=== PATIENT | female | born 1965 | race Caucasian/White ===

== ENCOUNTER → 2016-07-25 14:37 | Outpatient (CLI) | payer MEDICARE, MEDICAID ==
[2015-12-22 12:57] VITALS: BMI 29.6
[~2016-07-25 14:37] MED LIST: CLARITIN 10 MG10 MG PO; EFFIENT10 MG PO; HYDROCODONE-APA1 TAB PO; LIPITOR10 MG PO; LYRICA75 MG PO; MAXZIDE 75/501 TAB PO; MOBIC7.5 MG PO; NITROSTAT0.4 MG SL; NORVASC5 MG PO; PREDNISONE20 MG PO; PROAIR HFA8.5 GM INH; SYNTHROID25 MCG PO; XANAX0.25 MG PO; ZANAFLEX4 MG PO
== END | disposition home or self-care (01) ==
LOC: D.MRI 14:37
DX: M25.512 Pain in left shoulder (principal)

== ENCOUNTER 2017-10-03 17:05 | Inpatient (IN) | payer MEDICARE ==
[~2017-10-03] VITALS: Ht 168.9 cm; Wt 94.6 kg
[2017-10-03] MEDS ORDERED: BENADRYL25 MG PO (17:45)
[2017-10-03] MEDS ORDERED: PRINIVIL20 MG PO (17:48)
[2017-10-03] MEDS ORDERED: HYDRALAZINE HCL50 MG PO (17:50)
[2017-10-03] MEDS ORDERED: PROTONIX40 MG PO (17:50)
[2017-10-03 17:51] VITALS: BP 128/85; BMI 32.3
[2017-10-03 18:34] LABS: BASOPHILS 0.5 % (0-2); EOSINOPHILS 2.1 % (0-7); HEMATOCRIT 46.6 % (36.0-48.0); HEMOGLOBIN 16.2 g/dL (12-16); IMMATURE GRANULOCYTES 0.2 % (0-5); LYMPHOCYTES 36.2 % (15-50); MCH 31.2 pg (26.0-34.0); MCHC 34.8 g/dL (31.0-37.0); MCV 89.6 fL (80.0-100.0); MEAN PLATELET VOLUME 12.9 fL (7.4-10.4); MONOCYTES 8.4 % (2-11); NEUTROPHILS 52.6 % (40-80); PLATELET COUNT 198 10x3/uL (130-400); RDW 14.4 % (11.5-14.5); WBC 10.3 10x3/uL (4.8-10.8)
[2017-10-03 19:00] VITALS: BP 106/74
[2017-10-03 19:22] VITALS: Ht 168.9 cm; Wt 94.6 kg
[2017-10-04] VITALS: BP 140/90
[2017-10-04 04:00] VITALS: BP 107/61
[2017-10-04 08:52] VITALS: BP 118/87
[2017-10-04 10:08] LABS: ANION GAP 14.6 mmol/L (8-16); CALCIUM 8.5 mg/dL (8.5-10.1); CARBON DIOXIDE 24.8 mmol/L (21.0-32.0); POTASSIUM - SERUM 3.4 mmol/L (3.5-5.1)
[2017-10-04 11:35] VITALS: BP 122/78
[2017-10-04 16:21] VITALS: BP 105/62
[2017-10-04 20:06] VITALS: BP 107/70
[2017-10-05] VITALS (7 sets, daily range): BP systolic 104–122; BP diastolic 65–82
[2017-10-06 04:00] VITALS: BP 116/74
[2017-10-06 09:42] VITALS: BP 121/77
[2017-10-06 16:41] VITALS: BP 138/63
[2017-10-06] MEDS ORDERED: CIPRO500 MG PO (19:15)
== END 2017-10-06 20:30 | disposition home or self-care (01) | DRG 690 ==
LOC: D.M2 17:05
PROVIDERS: Urology
DX: N10 Acute pyelonephritis (principal); B96.20 Unspecified Escherichia coli [E. coli] as the cause of diseases classified elsewhere; I10 Essential (primary) hypertension; I25.10 Atherosclerotic heart disease of native coronary artery without angina pectoris; Z95.5 Presence of coronary angioplasty implant and graft; J44.9 Chronic obstructive pulmonary disease, unspecified; Z72.0 Tobacco use

== ENCOUNTER → 2018-01-29 22:46 | Outpatient (CLI) | payer MEDICARE ==
[2017-10-03 19:22] VITALS: BMI 32.3
[~2018-01-29 22:46] MED LIST changes: +BENADRYL25 MG PO; +CIPRO500 MG PO; +HYDRALAZINE HCL50 MG PO; +PRINIVIL20 MG PO; +PROTONIX40 MG PO
== END | disposition home or self-care (01) ==
LOC: D.MAMMO 13:15
DX: Z12.31 Encounter for screening mammogram for malignant neoplasm of breast (principal)

== ENCOUNTER 2018-08-27 12:23 | Outpatient (CLI) | payer MEDICARE ==
[~2018-08-27] VITALS: Ht 168.9 cm; Wt 85.5 kg
--- NOTE | ~2018-08-27 | OP ---
PATIENT NAME: TURNER CARMONA MEDICAL RECORD: [id number] :69 LOCATION:D.CAT ADMISSION DATE: SURGEON: BEV HER MD DATE OF OPERATION: 08/28/2018 DATE OF SERVICE: 08/28/2018 PROCEDURES: 1. PTCA stent left main. 2. PTCA stent LAD. 3. PTCA stent left circumflex. 4. Intravascular ultrasound. 5. Left heart catheterization. 6. Selective coronary angiography. 7. Left ventriculogram. INDICATION: Angina and coronary artery disease. PROCEDURE IN DETAIL: After informed consent was obtained and after a detailed description of risks, benefits as well as alternative therapies, the patient elected to proceed with angiogram and angioplasty. The left femoral area was prepped and draped in normal sterile fashion. Left femoral artery was cannulated via modified Seldinger technique with placement of 6-Georgian sheath. All catheters exchanged through this sheath. FINDINGS: Left ventriculogram was performed in standard 30-degree STONE view, reveals good cardiac wall motion throughout all segments. Overall ejection fraction estimated at 60%. SELECTIVE CORONARY ANGIOGRAPHY: 1. Left main is with no significant angiographic disease. The left main has greater than 80% stenosis by intravascular ultrasound. 2. Left anterior descending has previously placed stents. Intravascular ultrasound reveals there is greater than 70% stenosis proximal to the previously placed stents confirmed by intravascular ultrasound. 3. The left circumflex has 90% stenosis of the first obtuse marginal. 4. Right coronary has moderate irregularities, but no flow-limiting stenosis. Previously placed stents are widely patent. PTCA STENT OF THE LEFT MAIN: The stent used was a 3.5 x 15 mm German. Result was 0% residual stenosis. PTCA STENT OF LEFT CIRCUMFLEX: The stent used was a 2.25 x 12 mm German. Result was 0% residual stenosis. PTCA STENT OF THE LEFT ANTERIOR DESCENDING: The stent used was a 3.5 x 12 mm [place]. Result was 0% residual stenosis. OVERALL IMPRESSION: Successful percutaneous transluminal coronary angioplasty stent of the left main, left anterior descending, left circumflex going from 70% to 90% initial stenosis to 0% residual. TRANSINT:[id number] Voice Confirmation ID: [id number] DOCUMENT ID: [id number] OPERATIVE REPORT [id number] KRISTINETURNER Madison BEV HER MD CC: [id number] DICTATION DATE: 08/28/18 6918 EMERGENCY DETAIL DRIVER: 08/28/18 2327 DEP CLI 08/28/18 [facility] [address] [facility] [place] [address]
--- NOTE | ~2018-08-27 | HEMODYNAMI ---
PATIENT:TURNER CARMONA MEDICAL RECORD: [id number] : 69 [facility] [id number] ADMISSION DATE: 08/27/18 Generatedon:08/28/201815:00 Patient name: TURNER CARMONA Patient #: [id number] SSN: DO B: 1965 Date of study: 08/28/2018 Page: Of Hemodynamic Procedure Report Patient Data Patient Demographics Procedure consent was obtained First Name: TURNER Gender: Female Last Name: KRISTINE : 1965 [facility] Initial: K Age: 53 year(s) Patient #: [id number] Race: Additional ID: [id number] Contact details [address]: [address] [place] [address] State: [place] City: [place] Zip code: [address] Past Medical History Allergies Allergen Reaction Date Comments Reported Iodine 03/03/2015 Other allergy 03/03/2015 PLAVIX Other allergy 08/28/2018 [facility] Admission Admission Data Admission Date: 08/27/2018 Admission Time: 12:23 Room #: D.2120 Height (in.): 66.14 BSA: 1.95 (m2) Height (cm.): 168 BMI: 30.12 (kg/m2) Weight (lbs.): 187.39 Weight (kg.): 85 Lab Results Lab Result Date: 08/28/2018 Lab Result Time: 0:00 Biochemistry Name Units Result Min Max BUN mg/dl 14 --(--*-)-- 7 18 Creatinine mg/dl 1 --(--*-)-- 0.6 1.3 CBC Name Units Result Min Max Hemoglobin g/dl 15.1 --(-*--)-- 13.5 17.5 Procedure Procedure Types Cath Procedure Diagnostic Procedure C [facility] w/Coronaries FFR/IVUS Intra-Coronary IVUS Initial Intra-Coronary IVUS Additional Sedation Charges Moderate Sedation up to 15 minutes PCI Procedure Coronary Stent Coronary Stent Initial Coronary Stent Initial x2 Peripheral Cath Diagnostic Procedure Intelligence Agent Peripheral Procedures Four Vessel Arteriogram Procedure Description Procedure Date Procedure Date: 08/28/2018 Procedure Start Time: 14:32 Procedure End Time: 14:57 Procedure Staff Name Function Jt Lockwood MD Performing Physician Korey Phipps RT Monitor Maria Fernanda Hahn RN Nurse Ana Luisa Beltran RT Scrub Procedure Data Cath Procedure Fluoroscopy Diagnostic fluoroscopy Total fluoroscopy Time: 8.1 time: 8.1 min min Diagnostic fluoroscopy Total fluoroscopy dose: dose: 1107 mGy 1107 mGy Contrast Material Contrast Material Type Amount (ml) Isovue 300 230 Entry Location Entry Primary Successful Side Size Upsize Upsize Entry Closure Succes sful Closure Location (Fr) 1 (Fr) 2 (Fr) Remarks Device Remarks Femoral Left 6 Fr 6 Fr Exoseal artery Short Short Estimated blood loss: 10 ml Diagnostic catheters Device Type Used For End Catheter Placement MULTIPACK Pigtail 5 Fr Procedure catheter MULTIPACK JL 4.0 5Fr Procedure catheter MULTIPACK 3DRC 5Fr Procedure catheter MULTIPACK 3DRC 5Fr Procedure catheter Procedure Complications No complications Procedure Medications Medication Administration Route Dosage Oxygen etCO2 Nasal cannula 2 l/min Lidocaine 2% added to field 20 Heparin Flush Bag added to field 2 bags (1000units/500ml NS) 0.9% NaCl I.V. 100 ml/hr Effient P.O. 10 mg Versed I.V. 2 mg Fentanyl I.V. 100 mcg Versed I.V. 2 mg Fentanyl I.V. 100 mcg Heparin Bolus I.V. 4000 units Versed I.V. 2 mg Versed I.V. 1 mg Hemodynamics Rest BSA: 1.95 (m2) HGB: 15.1 (g/dl) O2 Consumption: Estimated: 201.98 (ml/min) O2 Co nsumption indexed: Estimated:103.58 (ml/min/m) Heart Rate: 86 (bpm) Snapshots Pre Cath Intra NCS Post Cath Vital Signs Time Heart Resp SPO2 etCO2 NIBP (mmHg) Rhythm Pain Sedation Rate (ipm) (%) (mmHg) Status Level (bpm) 14:05:47 85 14 98 0 134/81(122) NSR 0 (11) 10(A) , No pain 14:09:59 89 19 96 29.5 123/77(94) NSR 0 (11) 10(A) , No pain 14:14:09 84 16 94 30.2 119/77(100) NSR 0 (11) 10(A) , No pain 14:18:19 82 20 97 34.7 128/76(100) NSR 0 (11) 10(A) , No pain 14:22:31 85 17 93 31.8 116/77(97) NSR 0 (11) 10(A) , No pain 14:26:38 84 14 92 27.9 112/76(92) NSR 0 (11) 10(A) , No pain 14:30:46 89 13 93 26.4 108/72(84) NSR 0 (11) 10(A) , No pain 14:34:56 86 15 92 32.5 108/62(84) NSR 0 (11) 9(A) , No pain 14:39:06 84 13 94 35.5 111/60(86) NSR 0 (11) 9(A) , No pain 14:43:18 98 11 94 28 95/57(82) NSR 0 (11) 9(A) , No pain 14:47:22 101 13 97 35.5 109/67(92) NSR 0 (11) 9(A) , No pain 14:51:27 96 16 97 37.8 120/73(92) NSR 0 (11) 9(A) , No pain 14:55:37 95 14 98 37.8 109/65(87) NSR 0 (11) 10(A) , No pain Medications Time Medication Route Dose Verified Delivered Reason Notes Effectiveness by by 14:12:56 Oxygen etCO2 2 Jt Irving used for Nasal l/min Mandie Hahn RN procedure cannula 14:13:04 Lidocaine 2% added 20ml Jt Waters for local to vial Mandie Lockwood MD anesthetic field 14:13:09 Heparin Flush added 2 Jt Waters used for Bag to bags Mandie Lockwood MD procedure (1000units/500ml field NS) 14:13:22 0.9% NaCl I.V. 100 Jt Irving Per physician ml/hr Mandie Hahn RN 14:13:41 Effient P.O. 10 mg Jt Bolañosie for Mandie Hahn RN antiplatelet therapy 14:28:15 Versed I.V. 2 mg Jt Irving for sedation Mandie Hahn RN 14:28:22 Fentanyl I.V. 100 Jt Buffie for sedation mcg Mandie Hahn RN 14:33:12 Versed I.V. 2 mg Jt Irving for sedation Mandie Hahn RN 14:33:17 Fentanyl I.V. 100 Jtyaneli Irving for sedation mcg Mandie Hahn RN 14:37:55 Versed I.V. 2 mg Jt Irving for sedation Mandie Hahn RN 14:40:49 Heparin Bolus I.V. 4000 Jt Irving for verif ied units Mandie Hahn RN anticoagulation with dr lockwood 14:46:54 Versed I.V. 1 mg Jt Irving for sedation Mandie Hahn RN Procedure Log Time Note 13:44:45 Patient Height : 66.14 inches 13:44:50 Patient Weight : 187.39 lbs 13:45:22 Lab Result : Hemoglobin 15.1 g/dl 13:45:22 Lab Result : Creatinine 1 mg/dl 13:45:22 Lab Result : BUN 14 mg/dl 13:46:23 Diagnostic Cath status Elective 13:46:25 Maria Fernanda Hahn RN sent for patient. Start room use. 13:46:27 Time tracking: Regular hours (M-F 7:00 - 5:00) 13:46:33 Plan of Care:Hemodynamics will remain stable., Cardiac rhythm will remain stable., Comfort level will be maintained., Respiratory function will remain adequate., Patient/ family verbilizes understanding of procedure., Procedure tolerated without complication., Recovers from procedure without complications.. 13:46:40 Patient received from Pre/Post Procedure Room to [facility] 1 Alert and oriented. Tansferred to table in Supine position. 14:04:45 Vital chart was started 14:12:26 Warm blankets applied, and odalys hugger turned on for patient comfort. 14:12:29 Correct patient and procedure confirmed by team. 14:12:35 Signed procedure consent form obtained from patient. 14:12:36 ECG and BP/O2 sat monitors applied to patient. 14:12:38 Baseline sample Acquired. 14:12:42 Rhythm: sinus rhythm 14:12:45 Full Disclosure recording started 14:12:56 Oxygen 2 l/min etCO2 Nasal cannula was administered by Maria Fernanda Hahn RN; used for procedure; 14:12:59 H&P Date Dictated: 08/28/2018 Within 30 days and on chart.. 14:13:00 Pre-procedure instructions explained to patient. 14:13:02 Family in waiting room. 14:13:04 Lidocaine 2% 20ml vial added to field was administered by Jt Lockwood MD; for local anesthetic; 14:13:09 Heparin Flush Bag (1000units/500ml NS) 2 bags added to field was administered by Jt Lockwood MD; used for procedure; 14:13:16 Patient allergic to Other allergysee chrt 14:13:19 Is the patient allergic to Iodine/contrast media? Yes. 14:13:20 Was the patient premedicated? Yes 14:13:22 0.9% NaCl 100 ml/hr I.V. was administered by Maria Fernanda Hahn RN; Per physician; 14:13:22 Is patient on blood thinner?Yes 14:13:25 ACC The patient was administered the following blood thiners within the last 24 hours: ACCEffient 14:13:27 Patient diabetic? No. 14:13:34 Snore? Yes 14:13:36 Sleep apnea? Yes 14:13:39 Deviated septum? No 14:13:41 Effient 10 mg P.O. was administered by Maria Fernanda Hahn RN; for antiplatelet therapy; 14:13:47 Patient pain scale 0/10 ?. 14:13:58 IV patent on arrival in left forearm with 0.9% NaCl at [facility]. 14:14:03 Lab results completed and on chart. 14:14:09 Left groin area was prepped with chlora-prep and draped in sterile fashion 14:14:12 Alarms reviewed by R. N. 14:14:12 Sharps counted by scrub and verified by R.N. 14:14:13 Physician paged 14:14:14 Physician arrived 14:19:38 Pre procedure: right dorsailis pedis pulse 1+ Palpable, but thready & weak; easily obliterated 14:19:40 Pre procedure: left dorsailis pedis pulse 1+ Palpable, but thready & weak; easily obliterated 14:27:29 Zero performed for pressure channel P1 14::39 --------ALL STOP TIME OUT------ 14::39 Final Timeout: patient, procedure, and site verified with staff and physician. All members of the team are in agreement. 14:27:42 Left groin site verified by team. 14:27:46 Maximum allowable Isovue 300 dose 300ml. Physician notified. (300ml for normal creatinines. For patients with creatinine of 1.7 or higher multiply weight(kg) x 5 divided by creatinine.) 14:27:50 Fire Safety Assessment: A--An alcohol-based skin anteseptic being used preoperatively., C--Open oxygen or nitrous oxide is being used., D--An ESU, laser, or fiber-optic light is being used. 14:27:54 Physical assessment completed. ASA score P 2 - A patient with mild systemic disease as per Jt Lockwood MD. 14:28:02 Sedation plan: IV Moderate Sedation Medication:Versed, Fentanyl 14:28:06 Use device set Femoral Dx 14:28:07 ACIST Syringe (04450) opened to sterile field. 14:28:08 Bag Decanter (2002S) opened to sterile field. 14:28:08 Medline Cath Pack ([id number]) opened to sterile field. 14:28:09 ACIST Hand Control (20799) opened to sterile field. 14:28:10 ACIST Manifold (75924) opened to sterile field. 14:28:13 Tegaderm 4 x 4 (1626W) opened to sterile field. 14:28:14 DIAGNOSTIC WIRE .035 260cm J wire (431683) opened to sterile field. 14:28:15 Versed 2 mg I.V. was administered by Maria Fernanda Hahn RN; for sedation; 14:28:15 DIAGNOSTIC Multipack 5Fr catheter set (LH3544) opened to sterile field. 14:28:16 SHEATH 5FR Luxor (OPG433) opened to sterile field. 14:28:22 Fentanyl 100 mcg I.V. was administered by Maria Fernanda Hahn RN; for sedation; 14:28:25 Zero performed for pressure channel P1 14:32:26 Procedure started. 14:32:30 Local anesthetic to left femerol artery with Lidocaine 2% by Jt Lockwood MD.INITIAL ACCESS ONLY 14:32:38 A 6 Fr Short sheath was inserted into the Left Femoral artery 14:32:55 A MULTIPACK Pigtail 5 Fr catheter was advanced over the wire and used for Procedure. 14:33:08 LV gram done using STONE 14:33:10 Injector settings: Ml/sec: 10, Volume: 20, 14:33:12 Versed 2 mg I.V. was administered by Maria Fernanda Hahn RN; for sedation; 14:33:12 LV hemodynamics recorded. 14:33:17 Fentanyl 100 mcg I.V. was administered by Maria Fernanda Hahn RN; for sedation; 14:33:39 EF : 60 % 14:33:57 Catheter exchanged over wire. 14:34:02 A MULTIPACK JL 4.0 5Fr catheter was advanced over the wire and used for Procedure. 14:34:47 CHOICE PT Extra Support 182cm wire ([id number]) opened to sterile field. 14:34:48 INFLATOR Merit BasixCompak (AT1164) opened to sterile field. 14:34:55 SHEATH 6FR [place] (QFK182) opened to sterile field. 14:34:59 LCA angiography performed. 14:35:00 Catheter exchanged over wire. 14:35:18 A MULTIPACK 3DRC 5Fr catheter was advanced over the wire and used for Procedure. 14:35:40 RCA angiography performed. 14:36:44 GUIDE 6FR XBLAD 3.5 catheter ([id number]) opened to sterile field. 14:36:45 [place] IVUS Catheter (85607R) opened to sterile field. 14:36:50 Catheter removed. 14:36:56 Sheath upsized to a 6 Fr Short. 14:37:25 A MULTIPACK 3DRC 5Fr catheter was advanced over the wire and used for Procedure. 14:37:55 Versed 2 mg I.V. was administered by Maria Fernanda Hahn RN; for sedation; 14:38:07 Left carotid angiography performed. 14:39:06 Right subclavian angiography performed 14:39:09 Right carotid angiography performed. 14:40:19 Catheter removed. 14:40:29 6 Fr xblad 3.5 guide catheter was inserted over the wire 14:40:36 choice pt es wire advanced. 14:40:49 Heparin Bolus 4000 units I.V. was administered by Maria Fernanda Hahn RN; for anticoagulation; verified with dr lockwood 14:41:27 [place] IVUS Catheter ([id number]) opened to sterile field. 14:41:33 Wire advanced across lesion. 14:42:13 IVUS catheter advanced over wire. 14:44:09 IVUS pass to LAD lesion performed. 14:44:11 IVUS pass to LMCA lesion performed. 14:44:54 IVUS catheter removed over wire. 14:45:06 Wire redirected to citc. 14:45:16 Wire advanced across lesion. 14:46:54 Versed 1 mg I.V. was administered by Maria Fernanda Hahn RN; for sedation; 14:47:00 Place stent Inflation Number: 1 A JARRETT RX 2.25 x 12 stent ([id number]) was prepped and advanced across the Mid CX. The stent was deployed at 15 YOLY for 0:10 (min:sec). 14:47:22 Stent catheter was removed intact over wire. 14:47:26 Wire redirected to lad. 14:50:36 Place stent Inflation Number: 1 A JARRETT RX 3.5 x 15 stent ([id number]) was prepped and advanced across the LMCA. The stent was deployed at 13 YOLY for 0:10 (min:sec). 14:51:14 Stent catheter was removed intact over wire. 14:52:48 Place stent Inflation Number: 1 A JARRETT RX 3.5 x 12 stent ([id number]) was prepped and advanced across the Prox LAD. The stent was deployed at 13 YOLY for 0:10 (min:sec). 14:53:42 Stent catheter was removed intact over wire. 14:53:43 Wire removed. 14:53:43 Guide catheter removed. 14:53:49 EXOSEAL 6Fr (EX600) opened to sterile field. 14:53:55 Sheath removed intact; hemostasis achieved with Exoseal to the Left Femoral artery. 14:54:05 Procedure ended.(Physican Out) 14:54:49 Fluoroscopy time 08.10 minutes. 14:54:53 Fluoroscopy dose: 1107 mGy 14:54:53 Flurop Dose total: 1107 14:54:57 Contrast amount:Isovue 300 230ml. 14:54:58 Sharps counted by scrub and verified by R.N. 14:54:59 Insertion/operative site no bleeding no hematoma. 14:55:02 Post-op/insertion site Left Femoral artery dressed using a 4 x 4 and Tegaderm. 14:55:07 Post left femerol artery:stable, soft, clean and dry 14:55:09 Post Procedure Pulses reassessed and unchanged 14:55:12 Post-procedure physical assessment completed. ASA score P 2 - A patient with mild systemic disease as per Jt Lockwood MD. 14:55:14 Post procedure rhythm: unchanged. 14:55:19 Estimated blood loss: 10 ml 14:55:20 Post procedure instruction explained to patient.Patient verbalizes understanding. 14:55:21 Patient needs reinforcement of post procedure teaching. 14:56:42 Procedure type changed to Cath procedure, Diagnostic procedure, LHC, LHC w/Coronaries, FFR/IVUS, Intra-Coronary IVUS Initial, Intra-Coronary IVUS Additional, Sedation Charges, Moderate Sedation up to 15 minutes, PCI procedure, Coronary Stent, Coronary Stent Initial, Coronary Stent Initial x2, Peripheral Cath Diagnostic Procedure, Intelligence Agent Peripheral Procedures, Four Vessel Arteriogram 14:57:20 Procedure and supply charges have been captured, reviewed, submitted and are correct. 14:57:22 Procedure Complication : No complications 14:57:24 Vital chart was stopped 14:57:24 See physician's report for complete and final results. 14:57:41 Report given to PCU. 14:57:43 Patient transfered to PCU with Stretcher. 14:57:45 Procedure ended. 14:57:45 Full Disclosure recording stopped 14:57:48 End room use (Document Last) Intervention Summary Intervention Notes Time ActionType Lesion and Equipment Used Action# Pressure Duration Attributes 14:47:00 Place stent Mid CX JARRETT RX 2.25 x 1 15 00:10 12 stent ([id number]) 14:50:36 Place stent LMCA JARRETT RX 3.5 x 1 13 00:10 15 stent ([id number]) 14:52:48 Place stent Prox LAD JARRETT RX 3.5 x 1 13 00:10 12 stent ([id number]) Device Usage Item Name Manufacture Quantity Catalog Number Hospital Part Current M inimal Lot# / Charge Number Stock Stock Serial# Code ACIST Syringe Acist 1 73613 397627 556531 556242 2 0 (72633) Medical Row Sham Bow Inc Bag Decanter Microtek 1 411169 34342 991432 5 () Medical Inc. Medline Cath Medline 1 [id number] 400253 14816 087849 5 Pack ([id number]) ACIST Hand Acist 1 21450 862875 993123 226830 5 Control Medical (50178) Systems Inc ACIST Manifold Acist 1 66043 070537 970733 897092 5 (87716) Medical Systems Inc Tegaderm 4 x 4 3M 1 1626W 777020 118758 480960 5 (1626W) DIAGNOSTIC [place] 1 915542 563410 495070 407416 3 0 WIRE .035 260cm J wire (228982) DIAGNOSTIC Cardinal 1 QS1164 223424 76671 030972 3 0 Multipack 5Fr Health catheter set (TJ0687) SHEATH 5FR Terumo 1 KRM356 875980 946968 891958 5 Luxor (ZUL645) MULTIPACK Cardinal 1 042619 5 Pigtail 5 Fr Health catheter MULTIPACK JL Cardinal 1 542335 5 4.0 5Fr Health catheter CHOICE PT [place] 1 [id number] 008488 020726 541464 5 Extra Support Scientific 182cm wire ([id number]) INFLATOR Merit Merit 1 RZ1094 659477 911218 457847 1 5 RaNA [employer]rapeutics (ER4887) SHEATH 6FR Terumo 1 ILF791 586064 062859 571231 4 0 [place] (MDT702) MULTIPACK 3DRC Cardinal 1 320612 5 5Fr catheter Health GUIDE 6FR Cardinal 1 [id number] 853018 142351 367432 1 0 XBLAD 3.5 Health catheter ([id number]) [place] 2 23346K 026740 952015 352650 8 [place] IVUS Catheter (62983E) JARRETT RX 2.25 x Medtronic 1 [id number] 500852 8314165 062154 5 [id number] 12 stent ([id number]) JARRETT RX 3.5 x Medtronic 1 [id number] 636861 0589457 852763 5 [id number] 15 stent ([id number]) JARRETT RX 3.5 x Medtronic 1 [id number] 965601 0944051 477970 5 [id number] 12 stent ([id number]) EXOSEAL 6Fr Cardinal 1 EX600 690326 864432 873213 1 0 (EX600) Health Signature Audit [place] Stage Time Signature Unsigned Intra-Procedure 08/28/2018 Korey Phipps 3:00:55 PM RT(R) Signatures Monitor : Korey Phipps RT Signature : Date : Time : [address] [place] [address]
[2018-08-27 13:55] LABS: BASOPHILS 0.8 % (0-2); EOSINOPHILS 4.1 % (0-7); HEMATOCRIT 43.1 % (36.0-48.0); HEMOGLOBIN 15.1 g/dL (12-16); IMMATURE GRANULOCYTES 0.1 % (0-5); LYMPHOCYTES 44.7 % (15-50); MCH 31.8 pg (26.0-34.0); MCV 90.7 fL (80.0-100.0); MEAN PLATELET VOLUME 11.9 fL (7.4-10.4); MONOCYTES 4.6 % (2-11); NEUTROPHILS 45.7 % (40-80); PLATELET COUNT 236 10x3/uL (130-400); RBC 4.75 10x6/uL (4.00-5.40); WBC 8.5 10x3/uL (4.8-10.8)
[2018-08-27 14:10] LABS: APTT 35.2 SECONDS (22.8-39.4); INR 0.97 (0.85-1.17); PROTIME 12.4 SECONDS (11.6-15.0)
[2018-08-27 14:13] LABS: ALBUMIN 3.7 g/dL (3.4-5.0); ALKALINE PHOSPHATASE 101 U/L (46-116); ALT (SGPT) 29 U/L (10-68); BILIRUBIN - TOTAL 0.57 mg/dL (0.2-1.3); CALC OSMOLALITY 285 mosm/kg (275-300); CALCIUM 8.6 mg/dL (8.5-10.1); CARBON DIOXIDE 29.1 mmol/L (21.0-32.0); CHLORIDE - SERUM 106 mmol/L (98-107); GLUCOSE 99 mg/dL (74-106); PROTEIN - SERUM 7.1 g/dL (6.4-8.2); SODIUM 143 mmol/L (136-145); UREA NITROGEN 14 mg/dL (7-18); eGFR NON AFRICAN AMERICAN 62 mL/min (90-120)
[2018-08-27 14:14] LABS: POTASSIUM - SERUM 4.2 mmol/L (3.5-5.1)
[2018-08-27 14:26] LABS: CKMB 0.7 U/L (0.0-3.6); CREATINE KINASE 83 UL (21-215); MAGNESIUM - SERUM 1.8 mg/dL (1.8-2.4); TROPONIN-I < 0.017 ng/mL (0.000-0.060)
--- NOTE | 2018-08-27 19:15 | NUR ---
REPORT RECEIVED FROM FORREST ELIZALDE.
--- NOTE | 2018-08-27 19:30 | NUR ---
ARRIVED TO FLOOR VIA WHEELCHAIR, ACCOMPANIED BY HOSPITAL STAFF. ORIENTED TO UNIT AND PLACED ON TELEMETRY 88 SR. LEFT AC SALINE LOCKED. PLAN OF CARE DISCUSSED. NPO AFTER MIDNIGHT. CALL LIGHT IN REACH. SEE NURSE ASSESSMENT.
[2018-08-27] MEDS ORDERED: COMBIVENT RESPIM4 GM INH (22:24)
[2018-08-27] MEDS ORDERED: NORVASC5 MG PO (22:24)
[2018-08-27] MEDS ORDERED: BAYER CHEWABLE81 MG PO (22:25)
[2018-08-27 22:31] VITALS: BP 135/79; Ht 168.9 cm; Wt 85.5 kg
[2018-08-28] VITALS: BP 150/81
[2018-08-28 04:00] VITALS: BP 143/92
--- NOTE | 2018-08-28 07:15 | NUR ---
ALERT AND ORIENTED. TELEMERTY SHOWSSR 90. NPO FOR CATH. DENIES ANY NEEDS. SR UP WITH CALL LIGHT IN REACH
[2018-08-28 08:13] VITALS: BP 117/74
[2018-08-28 11:05] VITALS: BP 113/71
--- NOTE | 2018-08-28 13:00 | NUR ---
AGREE WITH WASTE DUSTER ASSESSMENT
--- NOTE | 2018-08-28 14:58 | HP ---
PATIENT: TURNER CARMONA MEDICAL RECORD: [id number] ACCOUNT: [id number] LOCATION:[address] : 69 ADMISSION DATE: 08/27/18 PCP: ZULAY LUZ MD HISTORY AND PHYSICAL EXAMINATION DIAGNOSES: 1. Unstable angina. 2. Coronary artery disease. 3. Hypertension. 4. Hyperlipidemia. HISTORY OF PRESENT ILLNESS: This is a lady well known to us with a past history of coronary artery disease, previous PTCA and stent, last being approximately 3 years ago, presents with increasing angina for the past 3 weeks, worsening over the past few days. PHYSICAL EXAMINATION: GENERAL APPEARANCE: Well-nourished, well-developed, appears stated age. Level of distress, comfortable. PSYCHIATRIC: Mental status, alert, normal affect. Orientation, oriented to time, place and person. EYES: Lids and conjunctiva, noninjected. No discharge, no pallor. ENT: Lips, teeth, gums, normal dentition. Oropharynx, no cyanosis, no pallor. NECK: Carotid arteries, bilateral normal upstroke, no bruits, no thrills. JUGULAR VEINS: No jugular venous pressure or distention. CERVICAL LYMPH NODES: Nontender, nonenlarged. THYROID: Not enlarged. Nontender. No nodules. LUNGS: Respiratory effort, unlabored. CHEST: Normal curvature. No thoracic deformity. No chest wall tenderness. Percussion, resonant. Auscultation, clear. No wheezes, no rales, no rhonchi. CARDIOVASCULAR: Precordial exam, nondisplaced. No heaves or pericardial thrills. Rate and rhythm, regular. Heart sounds, normal S1, normal S2. No S3, no gallop, no rub. Systolic murmur, not heard. Diastolic murmur, not heard. EXTREMITIES: No cyanosis, no edema. Peripheral pulses, full and equal in all extremities, except as noted. No bruits appreciated. ABDOMEN: Soft, nondistended. Normal aorta. No bruit. Nontender. No masses. Liver, nontender, no hepatomegaly. Spleen, nontender, no splenomegaly. MUSCULOSKELETAL: No joint tenderness. No joint swelling. No erythema. NEUROLOGICAL: Normal gait, normal strength, normal tone. SKIN: Warm and dry. OVERALL IMPRESSION: Unstable angina. We will proceed with coronary angiography. Further care depends upon findings of the angiography. TRANSINT:[id number] Voice Confirmation ID: [id number] DOCUMENT ID: [id number] HISTORY AND PHYSICAL [id number] TURNER CARMONA JEFFREY MD at 1458 CC: [id number] DICTATION DATE: 08/28/18 0407 CHIEF OF INTERNAL MEDICINE: 08/28/18 0415 [facility] [address] [id number]
--- NOTE | 2018-08-28 15:19 | NUR ---
pt back from [facility] [employer]. SEDATED BUT AWAKENS EASILY. TELEMERTY SHOWS SR. V/S STABLE. LEFT GROIN SOFT WITH DRSG DRY AND INTACT. PPP. VISTIORS AT BED SIDE. WILL MONITOR
--- NOTE | 2018-08-28 16:17 | NUR ---
LYING QUIETLY. V/S STABLE. LEFT GROIN SOFT WITH DRSG DRY AND INTACT.
--- NOTE | 2018-08-28 19:10 | NUR ---
Received patient resting quietly in bed, no voiced complaints at this time. Informed patient that she could now get up and ambulate in her room, which she did with no untoward symptoms. Left groin dressing C/D/I. Removed patient's PIV in left AC, small gauze dressing applied to site and held pressure for 2 minutes.
--- NOTE | 2018-08-28 20:00 | NUR ---
Reviewed discharge papers, made aware of appointment scheduled. Signed discharge papers and given her copy of all papperwork. States has called her friend and is on her way to pick her up.
--- NOTE | 2018-08-28 20:30 | NUR ---
Discharged home with friend, all her belongings sent with her, took all her discharge papers. Refusing to be escorted down to hospital lobby by staff and refusing to use wheelchair. States she has been here several times and knows the drill. Charge Nurse informed.
== END 2018-08-28 20:30 | disposition home or self-care (01) ==
LOC: D.CATH 12:23 → D.ER 12:23 → D.M2 12:23 → EDSTATUS 18:28 → D.M2 20:42 → D.CATH 08-28 20:30
PROVIDERS: Family Medicine; ATTEND Internal Medicine Interventional Cardiology
DX: I25.110 Atherosclerotic heart disease of native coronary artery with unstable angina pectoris (principal); I10 Essential (primary) hypertension; E78.5 Hyperlipidemia, unspecified; Z01.812 Encounter for preprocedural laboratory examination
CPT/HCPCS: 92978; 92979; 93458; C9600 ×3

== ENCOUNTER → 2019-02-01 23:59 | Outpatient (CLI) | payer MEDICARE ==
[2018-08-27 22:31] VITALS: BMI 29.9
[~2019-02-01 23:59] MED LIST changes: +BAYER CHEWABLE81 MG PO; +COMBIVENT RESPIM4 GM INH
== END | disposition home or self-care (01) ==
LOC: D.MAMMO 12-30 13:15
PROVIDERS: ATTEND Family Medicine
DX: Z12.31 Encounter for screening mammogram for malignant neoplasm of breast (principal)